=== PATIENT | female | born 1940 | race Caucasian/White ===

== ENCOUNTER → 2018-01-09 | Outpatient (CLI) | payer MEDICARE, BC ==
[~2018-01-09] MED LIST: ADVA100A INH; ATOR20TA15 PO; BRIM0.2S4 EACH EYE; CALC1TAB87 PO; CHLOR50 PO; CYAN1TAB24 PO; FLUT50SP EACH NARE; GLIM4TAB PO; LEVEMIR SQ; LIDO2GEL11 TOPICAL; METF500T PO; METO1TAB42 PO; NOVOLOGP2 SQ; NYST15T TOPICAL; OMEGCAP PO; OMEP20TA93 PO; PARO40TA2 PO; PEXE20TA PO; PRED50 PO; PRIL20TA2 PO; REST30CA PO; TEMA30CA PO; TIMO0.5S5 EACH EYE; VENTAER INH; ZITHTAB PO
[2018-01-09 09:48] LABS: HEMATOCRIT 42.5 % (35.0-46.0); HEMOGLOBIN 14.3 GM/DL (11.6-15.3); MEAN CELL VOLUME 84.5 FL (80.0-100.0); MEAN CORPUSCULAR HEMOGLOBIN 28.4 PG (27.0-34.0); MEAN CORPUSCULAR HGB CONC 33.6 % (32.0-36.0); MEAN PLATELET VOLUME 9.1 FL (7.0-11.0); PLATELET COUNT 229 TH/MM3 (150-450); RED BLOOD COUNT 5.03 MIL/MM3 (4.00-5.30); RED CELL DISTRIBUTION WIDTH 15.1 % (11.6-17.2); WHITE BLOOD COUNT 7.9 TH/MM3 (4.0-11.0)
[2018-01-09 09:55] LABS: PROTHROMBIN TIME - PATIENT 10.5 SEC (9.8-11.6)
[2018-01-09 10:00] LABS: BACTERIA, URINE MANY /hpf; BILIRUBIN, URINE NEG (NEG); BLOOD, URINE NEG (NEG); GLUCOSE,URINE NEG (NEG); HYALINE CAST, URINE 3 /lpf (RARE); KETONE, URINE NEG (NEG); MUCUS URINE FEW /lpf (OCC); PH, URINE 5.5 (5.0-8.5); SQUAMOUS EPITHELIAL CELL URINE 2 /hpf (0-5); URINE COLOR YELLOW (YELLW/STRAW); WHITE BLOOD CELL CLUMPS RARE
[2018-01-09 10:06] LABS: NITRITE,URINE POS (NEG); URINE LEUKOCYTE ESTERASE TRACE (NEG)
[2018-01-09 10:25] LABS: BICARBONATE 27.9 MEQ/L (21.0-32.0); BLOOD UREA NITROGEN 22 MG/DL (7-18); CALCIUM 9.3 MG/DL (8.5-10.1); CHLORIDE 99 MEQ/L (98-107); CREATININE 0.96 MG/DL (0.50-1.00); GLOMERULAR FILTRATION RATE 57 ML/MIN (>89); GLUCOSE,FASTING 252 MG/DL (74-99); SODIUM (NA) 138 MEQ/L (136-145)
[2018-01-09 16:16] LABS: HEMOGLOBIN A1C 7.9 % (4.3-6.0)
--- NOTE | 2018-01-10 15:54 | EKG ---
Date Performed: 01/09/2018 Time Performed: 08:30:50 PTAGE: 77 years EKG: Sinus rhythm RIGHT BUNDLE BRANCH BLOCK LEFT ANTERIOR FASCICULAR BLOCK ABNORMAL ECG NO PREVIOUS TRACING DOCTOR: Matthew Latham Interpretating Date/Time 01/10/2018 15:52:46
== END ==
LOC: CPRE 08:02
PROVIDERS: ATTEND Orthopaedic Surgery
DX: Z01.810 Encounter for preprocedural cardiovascular examination (principal); Z01.812 Encounter for preprocedural laboratory examination; M16.12 Unilateral primary osteoarthritis, left hip; M79.609 Pain in unspecified limb; I10 Essential (primary) hypertension; E11.9 Type 2 diabetes mellitus without complications; R94.31 Abnormal electrocardiogram [ECG] [EKG]; R82.99 Other abnormal findings in urine; B96.20 Unspecified Escherichia coli [E. coli] as the cause of diseases classified elsewhere
CPT/HCPCS: 36415; 80048; 81001; 83036; 85027; 85610; 85730; 87077; 87086; 87186; 93005

== ENCOUNTER → 2018-01-23 | Outpatient (CLI) | payer MEDICARE, BC ==
[~2018-01-23] MED LIST changes: +ADJUSTABLE COMM1 MIS; +ECASA81 PO; -GLIM4TAB PO; +HYDR-3580 PO; -LIDO2GEL11 TOPICAL; -METF500T PO; -METO1TAB42 PO; -PEXE20TA PO; +POTA-163 PO; +POTA10CA PO; -PRED50 PO; -PRIL20TA2 PO; -REST30CA PO; +XARE10TA PO; -ZITHTAB PO
[2018-01-23 11:33] LABS: BACTERIA, URINE MANY /hpf; BILIRUBIN, URINE NEG (NEG); BLOOD, URINE NEG (NEG); GLUCOSE,URINE NEG (NEG); HYALINE CAST, URINE 5 /lpf (RARE); KETONE, URINE NEG (NEG); MUCUS URINE FEW /lpf (OCC); NITRITE,URINE NEG (NEG); SQUAMOUS EPITHELIAL CELL URINE <1 /hpf (0-5); URINE COLOR YELLOW (YELLW/STRAW); URINE LEUKOCYTE ESTERASE SMALL (NEG)
== END ==
LOC: CPRE 09:34
PROVIDERS: ATTEND Orthopaedic Surgery
DX: Z01.812 Encounter for preprocedural laboratory examination (principal); M16.12 Unilateral primary osteoarthritis, left hip; M79.609 Pain in unspecified limb; I10 Essential (primary) hypertension; E11.9 Type 2 diabetes mellitus without complications; B96.89 Other specified bacterial agents as the cause of diseases classified elsewhere
CPT/HCPCS: 81001; 87077; 87086; 87186

== ENCOUNTER 2018-01-24 10:00 | Inpatient (IN) | payer MEDICARE, BC ==
[~2018-01-24] VITALS: Ht 160 cm; Wt 115.1 kg
[~2018-01-24 10:00] MED LIST changes: -ADJUSTABLE COMM1 MIS; -ECASA81 PO; -HYDR-3580 PO; -POTA-163 PO; -POTA10CA PO; -XARE10TA PO
[2018-01-30] MEDS ORDERED: CHLORHEXIDINE GLUCONATE 4% SOLN 120 ML BTL TOPICAL SCH (07:45)
[2018-01-30] MEDS ORDERED: SODIUM CHLORID 0.9% 500 ML IV PRN (07:45)
[2018-01-30] MEDS ORDERED: CHLORHEXIDINE GLUCONATE 2 % 1 PACK (2 CLOTHS) TOPICAL PRN (07:45)
[2018-01-30] MEDS ORDERED: LACTATED RINGER'S 1000 ML IV PRN (07:45)
[2018-01-30] MEDS ORDERED: ceFAZolin 2 GM PREMIX 50 ML IV SCH (07:45)
[2018-01-30] MEDS ORDERED: METOPROLOL TARTRATE 25 MG TAB PO PRN (07:45)
[2018-01-30] MEDS ORDERED: POVIDONE IODINE 5% (ANTISEPSIS KIT) 4 APPLICATIONS EACH NARE PRN (07:45)
[2018-01-30] MEDS ORDERED: POTA10CA PO (07:55)
[2018-01-30] MEDS ORDERED: POTA-163 PO (07:55)
[2018-01-30] MEDS ORDERED: SODIUM CHLORIDE 0.9% IV SCH ×2 (09:00→12:00)
[2018-01-30] MEDS ORDERED: EXPAREL PERI-ARTICULAR INJECTION (TOTAL VOL. 60 ML) P-ARTICULR SCH ×2 (09:00)
[2018-01-30] MEDS ORDERED: TRANEXAMIC ACID IV SCH ×2 (09:00→12:00)
[2018-01-30] MEDS ORDERED: GENTAMICIN SULFATE 80 MG/2 ML VIAL ONE ×2 (09:24→09:25)
[2018-01-30] MEDS ORDERED: PROPOFOL 500 MG/50 ML INJ 50 ML ONE (10:15)
[2018-01-30] MEDS ORDERED: ACETAMINOPHEN 1000 MG/100 ML 100 ML IV ONE (10:15)
[2018-01-30] MEDS ORDERED: MIDAZOLAM HCL 2 MG/2 ML VIAL ONE (10:15)
[2018-01-30] MEDS ORDERED: FAMOTIDINE 20 MG/2 ML VIAL ONE (10:15)
[2018-01-30] MEDS ORDERED: BUPIVACAINE PF 0.75% DEX-WATER INJ 2 ML AMP ONE (10:16)
[2018-01-30] MEDS ORDERED: PROPOFOL 200 MG/20 ML AMP IV ONE (12:00)
[2018-01-30] MEDS ORDERED: PHENYLEPH/NS 1000 MCG/10 ML SYR IV ONE (12:00)
[2018-01-30] MEDS ORDERED: LACTATED RINGER'S 1000 ML INJ 1,000 ML IV ONE (12:00)
[2018-01-30] MEDS ORDERED: ePHEDrine/NS 25 MG/5 ML SYRINGE IV ONE (12:00)
[2018-01-30] MEDS ORDERED: PROPOFOL 200 MG/20 ML AMP ONE (12:17)
[2018-01-30] MEDS ORDERED: MAGNESIUM HYDROXIDE SUSP 30 ML CUP PO PRN (12:45)
[2018-01-30] MEDS ORDERED: BISACODYL 10 MG SUPP RECTAL PRN (12:45)
[2018-01-30] MEDS ORDERED: TRANEXAMIC ACID INJ 0 MG in SODIUM CHLORIDE 0.9% INJ 100 ML IV SCH (12:45)
[2018-01-30] MEDS ORDERED: ZOLPIDEM TARTRATE 5 MG TAB PO PRN (12:45)
--- NOTE | 2018-01-30 12:58 | PD.OP ---
Operative Report Date of Surgery: Jan 30, 2018 Preoperative Diagnosis: (1) Primary osteoarthritis of left hip Postoperative Diagnosis: (1) Primary osteoarthritis of left hip Procedure: Left total hip arthroplasty using Ohiopyle prosthesis. 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 Her ambulation tolerance is now about 15 steps because of the pain. She has difficulty entering and exiting an automobile. She has difficulty with stairs. She has difficulty standing from a seated position. Treatment has been with analgesics, ambulatory aids, exercise, activity modification. She cannot take nonsteroidal anti-inflammatory agents because of possible anaphylaxis associated with aspirin products. Physical findings showed limited range of motion of the hip with tenderness on motion. She has a severely antalgic gait. X-rays showed advanced arthritis in the left hip with joint space narrowing, irregularity in the shape of the proximal femur and acetabulum, osteophytes and eburnation. Operative findings: There is severe osteoarthritis in the left hip with eburnation, large osteophytes and loss of articular cartilage to expose subchondral bone. Implants: The acetabular component was a Tritanium cluster shell, outer diameter of 50 mm with a 36 mm inner diameter, X3 polyethylene, 0 lip liner. The femoral component was an Accolade 2 size 3 x 132. The femoral head was Biolox delta, 36 mm outer diameter, +0 mm offset. The patient was brought to the clean air operating suite and a spinal anesthetic was administered. The patient was then positioned into a lateral position with the operative hip up on a [employer] lateral positioner. The hip and lower extremity were then prepped with alcohol, Hibiclens and ChloraPrep and draped in the usual manner with the hip draped free. Patient received prophylactic antibiotics preoperatively. The patient also received tranexamic acid preoperatively. An appropriate timeout procedure was carried out. An incision was then made from the midportion of the greater trochanter proximally and posteriorly paralleling the fibers of the gluteus jean-paul. The incision was deepened through subcutaneous tissues down to the fascia radha and gluteus fascia. The gluteus fascia was then split longitudinally in line with its fibers up to the upper portion of the fascia radha. With wound towels in place, the Charnley retractor was inserted. The sciatic nerve was identified and protected throughout the procedure. Dissection was then carried down to the interval between the gluteus minimus and the piriformis. A retractor was inserted. The piriformis and obturator conjoined tendon was released from the greater trochanter and reflected off the capsule. A capsulotomy was made longitudinally along the femoral neck to the base of the femoral neck and then curved distally along the posterior aspect of the greater trochanter. The hip was then internally rotated. Further release of the external rotators was carried out exposing the hip. The hip was then dislocated. The femoral neck was transected at the appropriate level using the oscillating saw placement of appropriate retractors. The femoral head was then removed. Preparation of the femur was initiated with a box osteotome followed by a curet to identify the medullary canal. Broaching was then initiated with the size 0 broach and went and 1 size increments up to size 4 initially and then subsequently was brought back to a size 3. The broach handle was removed. The femoral neck was then trimmed with a calcar planar. Attention was then directed to the acetabulum. Soft tissues were debrided from the acetabulum. Retractors were placed about the acetabulum. Reaming was then initiated with the 45 mm millimeter reamer and went in 1-2 mm increments up to the 49 mm millimeter diameter reamer. A trial reduction with the 50 mm millimeter trial prosthesis was carried out. When this was deemed to be appropriate, the trial prosthesis was removed. The acetabulum was then irrigated and cleaned. The actual prosthesis as noted above was then impacted into place and seated appropriately. Drill holes were then made and sounded. Appropriate sized screws were then inserted to stabilize the acetabulum further. The liner as noted above was then inserted into the acetabular shell and impacted into place. Osteophytes were trimmed from the acetabulum. Local anesthetic was then administered throughout the area of the acetabulum and anterior aspect of the femur. The trial neck was then placed on the broach for the above-noted prosthesis. The femoral head trial was placed onto the femoral neck . A trial reduction was then carried out. Adjustment was made as needed. The stability, leg length and motion were excellent. There was no pistoning. The trial prosthesis was removed. The broach was removed. The femoral component was then impacted into the medullary canal of the femur after irrigation and suctioning. When this was appropriately seated a trial reduction was again carried out with the trial prosthesis. Again, there was no pistoning. The leg length was appropriate. The stability and motion were excellent. The trial prosthesis was then removed. After cleaning and drying the trunion of the femoral component, the above-noted femoral head was impacted onto the trunnion. The hip was then reduced. The stability and mobility were again checked along with leg lengths as noted above. The hip was then positioned appropriately and closure commenced after the remainder of the local anesthetic was injected throughout the hip. The external rotators and capsule were then repaired with #1 Vicryl interrupted transosseous sutures with a Krak w technique to reattach the external rotators and capsule to the posterior aspect of the greater trochanter. The capsule itself on the superior aspect was closed with #1 Vicryl interrupted [id number] sutures. The sciatic nerve was again inspected. The fascia radha and gluteus fascia were then repaired with #1 Vicryl interrupted [id number] sutures. The subcutaneous tissues were closed with 2-0 Vicryl interrupted simple sutures with buried knots. The skin was closed with a continuous subcuticular closure of 4-0 Monocryl. The wound was then approximated with Dermabond Prineo. A dry sterile dressing was applied to the hip. A knee immobilizer was applied to the leg. The patient was then transferred from the operating room to the recovery room in satisfactory condition having tolerated the procedure well. Counts are correct. Specimens: None. Estimated blood loss: 150 mL Mansi Howard MD (Charles) Jan 30, 2018 12:58
[2018-01-30] MEDS ORDERED: NYSTATIN 100,000 UNIT/GM CREAM 15 GM TOPICAL PRN (13:00)
[2018-01-30] MEDS ORDERED: ALBUTEROL SULFATE 90 MCG/ACT HFA 8 GM INHALER INH PRN (13:00)
--- NOTE | 2018-01-30 13:00 | HHI.FF ---
Face to Face Verification Diagnosis: (1) Status post total replacement of left hip Physical Therapy Gait training Hip: Total hip, Protocol: Left, Posterior hip precautions, Progress to weight bearing Canvas Knee Splint: When in bed & 2 pillows btw thighs Left LE Weight Bearing: WB as tolerated Left LE Range of Motion: Active ROM Nursing Nursing: Dressing changes Dressing Changes: Daily dressing change, Coverderm/Primapore Additional Instructions Do not remove Dermabond Prineo. I have seen patient Luz Orr on 01/30/18. My clinical findings support the need for the requested home health care services because: Ltd mobility - disease progression Limited ability to care for self High risk of falls I certify that my clinical findings support that this patient is homebound because: Post-op weakness Unsteady gait/balance Unsafe to leave home unassisted Mansi Howard MD (Charles) Jan 30, 2018 13:00
[2018-01-30] MEDS ORDERED: HYDR-3580 PO (13:03)
[2018-01-30] MEDS ORDERED: XARE10TA PO (13:03)
[2018-01-30] MEDS ORDERED: DO NOT ADM ANY ANTICOAGULANT DRUGS PRN (13:13)
--- NOTE | 2018-01-30 13:57 | RADRPT ---
EXAM DATE: 01/30/2018 1:55 PM EDT AGE/SEX: 77 years / Female INDICATIONS: Post op left total hip. CLINICAL DATA: This is the patient's initial encounter. Patient reports that signs and symptoms have been present for 1 day and indicates a pain score of Nonresponsive. MEDICAL/SURGICAL HISTORY: . Unobtainable. . Unobtainable. COMPARISON: No prior exams available for comparison. FINDINGS: The patient is status post a total hip arthroplasty. Prosthesis is well-seated. Alignment is anatomic . A fracture is not appreciated. CONCLUSION: Anatomic alignment. Marv Guevara MD FACR Electronically signed by: Marv Guevara MD 01/30/2018 1:55 PM EDT
[2018-01-30] MEDS: LACTATED RINGER'S 1000 ML INJ 1,000 ML IV SCH (14:00)
[2018-01-30] MEDS ORDERED: ONDANSETRON ODT 4 MG TAB PO PRN (14:15)
[2018-01-30] MEDS ORDERED: Post-op Orders (for Pharmacy) XX ONE (14:15)
[2018-01-30] MEDS ORDERED: MORPHINE SULFATE 4 MG/ML INJ IV PUSH PRN (14:15)
[2018-01-30] MEDS ORDERED: DEXTROSE 50% IN WATER 50 ML VIAL(D50) IV PUSH PRN (14:30)
[2018-01-30] MEDS ORDERED: GLUCAGON 1 MG/ML VIAL OTHER PRN (14:30)
--- NOTE | 2018-01-30 14:58 | PD.CONS ---
HPI Service [facility] Consult Requested By Dr. SAMM Howard Reason for Consult Opinion and recommendation on patient's diabetes mellitus, hypertension, asthma Primary Care Physician No Primary Care Physician Diagnoses: History of Present Illness 77-year-old white female with a history of osteoarthritis, hyperlipidemia, diabetes mellitus, insulin-dependent, asthma, hypertension who has had long- standing history of left hip pain despite conservative treatment. She electively underwent a left total hip arthroplasty today with Dr. Howard orthopedic surgery. She is currently being seen here in the PACU. Her daughter is also at bedside who assisted with helping me gather her past medical history. She does have a history of constipation. She has also been seeing Dr. Becerril for a right hip buttocks wound as an outpatient. Review of Systems Constitutional: DENIES: Fatigue, Fever, Chills, Change in appetite Endocrine: DENIES: Heat/cold intolerance Eyes: DENIES: Blurred vision, Eye pain, Vision loss Ears, nose, mouth, throat: DENIES: Hearing loss, Nasal discharge, Throat pain, Ear Pain, Sinus Pain Respiratory: DENIES: Cough, Shortness of breath Cardiovascular: DENIES: Chest pain, Palpitations, Dyspnea on Exertion, Lower Extremity Edema Gastrointestinal: COMPLAINS OF: Constipation, DENIES: Abdominal pain, Black stools, Bloody stools, Diarrhea, Nausea, Vomiting Genitourinary: DENIES: Dysuria Musculoskeletal: COMPLAINS OF: Joint pain (Left hip pain as described in HPI), DENIES: Muscle aches, Stiffness Integumentary: DENIES: Rash Hematologic/lymphatic: DENIES: Bruising, Lymphadenopathy Immunologic/allergic: DENIES: Eczema Neurologic: DENIES: Headache, Localized weakness, Paresthesias Psychiatric: DENIES: Anxiety, Depression, Suicidal Ideation Past Family Social History Allergies: Coded Allergies: diclofenac (Verified Allergy, Severe, Analphylaxis, 01/30/18) etodolac (Verified Allergy, Severe, Analphylaxis, 01/30/18) flurbiprofen (Verified Allergy, Severe, Analphylaxis, 01/30/18) ibuprofen (Verified Allergy, Severe, Analphylaxis, 01/30/18) indomethacin (Verified Allergy, Severe, Analphylaxis, 01/30/18) ketoprofen (Verified Allergy, Severe, Analphylaxis, 01/30/18) ketorolac (Verified Allergy, Severe, Analphylaxis, 01/30/18) lisinopril (Verified Allergy, Severe, Anaphylaxis, 01/30/18) beth (Verified Allergy, Severe, Rash, 01/30/18) naproxen (Verified Allergy, Severe, Analphylaxis, 01/30/18) oxaprozin (Verified Allergy, Severe, Analphylaxis, 01/30/18) Past Medical History Hyperlipidemia Hypertension Asthma GERD Sciatica Insulin-dependent diabetes mellitus Anxiety Depression Past Surgical History Right total hip surgery Right carpal tunnel release Lumbar surgery Cataract surgery Reported Medications Albuterol 1 puff inhaler every 4 as needed for shortness of breath Atorvastatin 20 mg p.o. nightly Breyer 191 drop each eye twice daily Calcium carbonate 1 tablet p.o. daily Chlorothiazide down 50 mg p.o. daily Vitamin B12 1000 MCG's p.o. daily Fish oil 1 capsule p.o. twice daily Flonase nasal spray each nail twice daily as needed Advair 1 puff inhaler twice daily Hydrocodone/acetaminophen 1 p.o. every 4 as needed for pain NovoLog 8 units subcu q. before meals and nightly Levemir 22 units subcu daily Nystatin topical area twice daily as needed Prilosec 20 mg p.o. daily as needed Paroxetine 40 mg p.o. daily Potassium chloride 10 mg p.o. nightly Potassium chloride 20 mg p.o. q. daily Restoril 30 mg p.o. nightly Timolol ophthalmic drops 1 drop twice daily Family History Father had COPD Mother had colon cancer and dementia Social History Does not smoke cigarettes or drink alcohol Physical Exam Vital Signs Vital Signs Date Time Temp Pulse Resp B/P (MAP) Pulse Ox O2 Delivery O2 Flow Rate FiO2 01/30/18 13:14 98.1 90 20 121/60 (80) 95 Nasal Cannula 2 01/30/18 08:00 98.1 86 20 159/90 (113) 99 Physical Exam GENERAL: This is a well-nourished, obese, well-developed patient, in no apparent distress. SKIN: No rashes, ecchymoses or lesions. Cool and dry. HEAD: Atraumatic. Normocephalic. No temporal or scalp tenderness. EYES: Pupils equal round and reactive. Extraocular motions intact. No scleral icterus. No injection or drainage. ENT: Nose without bleeding, purulent drainage or septal hematoma. T NECK: Trachea midline. No JVD or lymphadenopathy. Supple, nontender, no meningeal signs. CARDIOVASCULAR: Regular rate and rhythm RESPIRATORY: Clear to auscultation. Breath sounds equal bilaterally. No wheezes , rales, or rhonchi. GASTROINTESTINAL: Abdomen soft, non-tender, nondistended, normoactive bowel sounds MUSCULOSKELETAL: Extremities without clubbing, cyanosis, trace edema, left lower leg bandage clean dry intact in immobilizer NEUROLOGICAL: Awake and alert to person place time. Cranial nerves II through XII intact. Laboratory Laboratory Tests Test 01/30/18 07:58 Potassium Level 3.5 Result Diagram: 01/30/18 0758 Assessment and Plan Assessment and Plan 1. Status post left total hip arthroplasty continue postoperative care, pain control, physical therapy per Dr. Howard orthopedic surgery 2. Insulin-dependent diabetes mellitus resume home Levemir and NovoLog prior to meals, check blood sugars with sliding scale insulin coverage. Further recommendation based on blood sugar trends 3. Hypertension resume home antihypertensives 4. Hyperlipidemia resume home statin 5. GERD PPI 6. History of depression/anxiety resume paroxetine 7. DVT prophylaxis Xarelto Thank you for this consultation Marielos Castellon MD Jan 30, 2018 14:58
[2018-01-30 16:00] VITALS: BP 157/104; PULSE 84; RESP 18; TEMP 97.5; O2SAT 97
[2018-01-30] MEDS: INSULIN ASPART SUPPLEMENTAL SCALE SQ SCH ×2 (17:00→21:11)
[2018-01-30 20:00] VITALS: BP 176/85; PULSE 96; RESP 18; TEMP 98.2; O2SAT 99
[2018-01-30] MEDS: BUDESONIDE-FORMOTEROL 80/4.5 MCG INHALER INH SCH (21:00)
[2018-01-30] MEDS ORDERED: NON-FORMULARY DRUG (Fish Oil-Cholecalciferol (Omega-3 Fish Oil/Vitamin) 1 CAP) PO SCH (21:00)
[2018-01-30] MEDS: INSULIN ASPART 1,000 UNITS/10 ML VIAL SQ SCH (21:00)
[2018-01-30] MEDS: BRIMONIDINE TARTRATE 0.2% OPHT SOLN 5 ML BTL EACH EYE SCH (21:00)
[2018-01-30] MEDS: TIMOLOL MALEATE 0.5% OPHT SOLN 5 ML BTL EACH EYE SCH (21:00)
[2018-01-30] MEDS: ATORVASTATIN 20 MG TAB PO SCH (21:10)
[2018-01-30] MEDS: POTASSIUM CHLORIDE 10 MEQ CAP PO SCH (21:10)
[2018-01-30] MEDS: ACETAMINOPHEN/HYDROcodone 325 MG/7.5 MG TAB PO PRN (21:11)
[2018-01-31] VITALS: BP 130/83; PULSE 102; RESP 18; TEMP 98.7; O2SAT 98
[2018-01-31] MEDS: LACTATED RINGER'S 1000 ML INJ 1,000 ML IV SCH ×2 (02:30→15:00)
[2018-01-31] MEDS: ACETAMINOPHEN/HYDROcodone 325 MG/7.5 MG TAB PO PRN ×3 (03:42→19:54)
[2018-01-31 04:00] VITALS: BP 146/68; PULSE 99; RESP 18; TEMP 98.2; O2SAT 96
[2018-01-31 04:56] LABS: HEMATOCRIT 37.2 % (35.0-46.0); HEMOGLOBIN 12.7 GM/DL (11.6-15.3)
--- NOTE | 2018-01-31 06:19 | PD.ORT.PN ---
Subjective Post Op Day #: 1 Subjective Remarks She is doing well. She indicates that she walked 3 steps. She has some pain. Distance Walked The patient was not walked therapy because of minor residuals of the spinal. Objective Vitals Vital Signs Date Time Temp Pulse Resp B/P (MAP) Pulse Ox O2 Delivery O2 Flow Rate FiO2 01/31/18 04:00 98.2 99 18 146/68 (94) 96 01/31/18 00:00 98.7 102 18 130/83 (99) 98 01/30/18 20:00 98.2 96 18 176/85 (115) 99 01/30/18 16:00 97.5 84 18 157/104 (121) 97 01/30/18 15:41 97.6 81 20 139/63 (88) 97 Nasal Cannula 2 01/30/18 15:30 81 20 139/63 (88) 97 Nasal Cannula 2 01/30/18 15:15 79 20 133/60 (84) 98 Nasal Cannula 2 01/30/18 15:00 79 20 138/65 (89) 100 Nasal Cannula 2 01/30/18 14:45 79 20 143/66 (91) 100 Nasal Cannula 2 01/30/18 14:30 81 20 145/72 (96) 98 Nasal Cannula 2 01/30/18 14:15 79 20 145/71 (95) 98 Nasal Cannula 2 01/30/18 14:00 80 20 142/73 (96) 98 Nasal Cannula 2 01/30/18 13:45 85 20 138/74 (95) 100 Nasal Cannula 2 01/30/18 13:30 90 20 122/63 (82) 96 Nasal Cannula 2 01/30/18 13:14 98.1 90 20 121/60 (80) 95 Nasal Cannula 2 01/30/18 08:00 98.1 86 20 159/90 (113) 99 I/O 01/30/18 01/30/18 01/30/18 01/31/18 01/31/18 01/31/18 07:00 15:00 23:00 07:00 15:00 23:00 Intake Total 1800 ml 480 ml Output Total 150 ml Balance 1650 ml 480 ml Intake Oral 480 ml Other 1800 ml Output Estimated Blood Loss 150 ml # Voids 1 2 # Bowel Movements 1 Result Diagram: 01/31/18 0445 01/30/18 0758 Imaging Last 24 hours Impressions Hip X-Ray 01/30/18 8073 Signed Impressions: CONCLUSION: Anatomic alignment. Marv Guevara MD FACR Objective Remarks She is resting comfortably, supine in bed. The neurovascular status is intact. The dressing is dry and intact. Assessment & Plan Ortho Post Op Day #: 1 Problem List: (1) Primary osteoarthritis of left hip ICD Codes: M16.12 - Unilateral primary osteoarthritis, left hip Status: Resolved (2) Status post total replacement of left hip ICD Codes: Z96.642 - Presence of left artificial hip joint Plan: Continue postop care and PT. Assessment and Plan Condition: Good. Orthopedically stable. DVT prophylaxis: TEDs, Xarelto, sequentials. Discharge plans: Home with home health care, today or tomorrow. An appointment was scheduled through the office. Prescriptions: Vader 7.5/325 Mansi Howard MD (Charles) Jan 31, 2018 06:19
[2018-01-31 08:02] VITALS: BP 136/63; PULSE 91; RESP 18; TEMP 98.1; O2SAT 95
--- NOTE | 2018-01-31 08:07 | PD.WOU.CON ---
Patient Intake Chief Complaint Right hip ulcer Consult Requested by Reason for Consult Management of right hip ulcer. Primary Care Physician No Primary Care Physician Coded Allergies: diclofenac (Verified Allergy, Severe, Analphylaxis, 01/30/18) etodolac (Verified Allergy, Severe, Analphylaxis, 01/30/18) flurbiprofen (Verified Allergy, Severe, Analphylaxis, 01/30/18) ibuprofen (Verified Allergy, Severe, Analphylaxis, 01/30/18) indomethacin (Verified Allergy, Severe, Analphylaxis, 01/30/18) ketoprofen (Verified Allergy, Severe, Analphylaxis, 01/30/18) ketorolac (Verified Allergy, Severe, Analphylaxis, 01/30/18) lisinopril (Verified Allergy, Severe, Anaphylaxis, 01/30/18) beth (Verified Allergy, Severe, Rash, 01/30/18) naproxen (Verified Allergy, Severe, Analphylaxis, 01/30/18) oxaprozin (Verified Allergy, Severe, Analphylaxis, 01/30/18) Vital Signs Date Time Temp Pulse Resp B/P (MAP) Pulse Ox O2 Delivery O2 Flow Rate FiO2 01/31/18 08:02 98.1 91 18 136/63 (87) 95 01/31/18 04:00 98.2 99 18 146/68 (94) 96 01/31/18 00:00 98.7 102 18 130/83 (99) 98 01/30/18 20:00 98.2 96 18 176/85 (115) 99 01/30/18 16:00 97.5 84 18 157/104 (121) 97 01/30/18 15:41 97.6 81 20 139/63 (88) 97 Nasal Cannula 2 01/30/18 15:30 81 20 139/63 (88) 97 Nasal Cannula 2 01/30/18 15:15 79 20 133/60 (84) 98 Nasal Cannula 2 01/30/18 15:00 79 20 138/65 (89) 100 Nasal Cannula 2 01/30/18 14:45 79 20 143/66 (91) 100 Nasal Cannula 2 01/30/18 14:30 81 20 145/72 (96) 98 Nasal Cannula 2 01/30/18 14:15 79 20 145/71 (95) 98 Nasal Cannula 2 01/30/18 14:00 80 20 142/73 (96) 98 Nasal Cannula 2 01/30/18 13:45 85 20 138/74 (95) 100 Nasal Cannula 2 01/30/18 13:30 90 20 122/63 (82) 96 Nasal Cannula 2 01/30/18 13:14 98.1 90 20 121/60 (80) 95 Nasal Cannula 2 Past, Family & Social History Past Medical History HEENT: REPORTS HX OF: Other HEENT history (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 7), DENIES HX OF: Cataracts, Glaucoma, Recurrent ear infections, Recurrent sinusitis Endocrine: REPORTS HX OF: Diabetes mellitus, DENIES HX OF: Graves disease, Hyperthyroidism, Hypothyroidism, Other endocrine history Respiratory: DENIES HX OF: Allergies/hay fever, Asthma, COPD, CPAP use, Sleep apnea, Other respiratory history Cardiovascular: REPORTS HX OF: Hyperlipidemia, Hypertension, Other CV history ( obesity), DENIES HX OF: Abdominal aortic aneurysm, Angina, Atrial fibrillation, Cardiac arrhythmias, Coronary artery disease, Deep venous thrombosis, Heart failure, Heart valve disease, Myocardial infarction, Peripheral vascular dz Gastrointestinal: DENIES HX OF: Colitis, GERD, Irritable bowel syndrome, Liver disease, Pancreatitis, Peptic ulcer disease, Other GI history Genitourinary: DENIES HX OF: Chlamydia, Gonorrhea, Hemodialysis, Herpes genitalis, Human papillomavirus, Kidney disease, Kidney failure, Kidney stones, Past UTI, Peritoneal dialysis, Urinary incontinence, Other history Gynecologic: DENIES HX OF: Abnormal pap smear, Chronic pelvic pain, Endometriosis, PID, Polycystic ovarian synd, Recurrent vaginal infxn, 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 Age at Menarche: 14 Age at Menopause: 47 History: : 5 Live Births: 5 Musculoskeletal: REPORTS HX OF: Osteoarthritis, Other musculoskeletal hx ( chronic back pain) Cancer/Hematology: DENIES HX OF: Anemia, Bladder Cancer, Blood cancer, Brain cancer, Breast cancer, Colorectal cancer, Endocrine cancer, Eye cancer, GI cancer, cancer, Kidney cancer, Leukemia, Liver cancer, Lung cancer, Lymphoma , Musculoskeletal cancer, Neurologic cancer, Oral cancer, Skin cancer, Stomach cancer, Thyroid cancer, Other cancer/hematology Cancer - Female: DENIES HX OF: Cervical cancer, Ovarian cancer, Uterine cancer Infectious Disease: REPORTS HX OF: Chickenpox, Measles, DENIES HX OF: AIDS, Hepatitis, HIV, MRSA, Mumps, Polio, Positive PPD, Rheumatic fever, Rubella, Syphilis, Tuberculosis, Vanc-resistant enterococc, Other inf disease history Integumentary: DENIES HX OF: Acne, Eczema, Psoriasis, Other integumentary hx Neurologic: DENIES HX OF: ADHD, Autism, Dementia, Developmental delay, Headaches, Multiple sclerosis, Parkinson disease, Peripheral neuropathy, Restless leg syndrome, Seizures, Stroke, Transient ischemic attack, Other neurologic history Psychiatric: REPORTS HX OF: Depression Genetic/Metabolic: DENIES HX OF: Cystic fibrosis, Down syndrome, Other genetic history, Other metabolic history Events: DENIES HX OF: Anaphylaxis, Gunshot wound, Motor vehicle accident, Other events Disabilities: REPORTS HX OF: Hearing deficit Past Surgical History Gastrointestinal: DENIES HX OF: Colectomy, total Gynecologic: DENIES HX OF: Hysterectomy Musculoskeletal: REPORTS HX OF: Joint replacement (right hip replaced, ganglion cyst removal) Breast: DENIES HX OF: Mastectomy, bilateral, Mastectomy, left, Mastectomy, right Family Medical History COPD (chronic obstructive pulmonary disease) Social History Social History: Adopted: No Educational Level: graduated high school Lives Independently: Yes Marital Status: Service: No 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 Marcia Tse MD, MD Jan 31, 2018 08:07
[2018-01-31] MEDS: INSULIN ASPART 1,000 UNITS/10 ML VIAL SQ SCH ×4 (08:39→21:00)
[2018-01-31] MEDS: CYANOCOBALAMIN 1,000 MCG TAB PO SCH (08:39)
[2018-01-31] MEDS: INSULIN ASPART SUPPLEMENTAL SCALE SQ SCH ×4 (08:39→21:00)
[2018-01-31] MEDS: PARoxetine HCL 20 MG TAB PO SCH (08:40)
[2018-01-31] MEDS: CHLORTHALIDONE 50 MG TAB PO SCH (08:40)
[2018-01-31] MEDS: POTASSIUM CHLORIDE 20 MEQ CONTROLLED RELEASE TAB PO SCH (08:41)
[2018-01-31] MEDS: INSULIN DETEMIR 100 UNITS/ML VIAL SQ SCH (08:42)
--- NOTE | 2018-01-31 08:47 | HHI.PR ---
Subjective Remarks Follow-up visit HLD, DM insulin-dependent, HTN, status post left total hip arthroplasty. Patient seen and examined today. Reports she is in pain, 10/ states that she did get her pain medication. Otherwise, denies chest pain, palpitations, headaches, dizziness. Denies shortness of breath, cough, dyspnea. Denies any fevers, chills, nausea, vomiting, diarrhea. Denies dysuria. Objective Vitals Vital Signs Date Time Temp Pulse Resp B/P (MAP) Pulse Ox O2 Delivery O2 Flow Rate FiO2 01/31/18 08:02 98.1 91 18 136/63 (87) 95 01/31/18 04:00 98.2 99 18 146/68 (94) 96 01/31/18 00:00 98.7 102 18 130/83 (99) 98 01/30/18 20:00 98.2 96 18 176/85 (115) 99 01/30/18 16:00 97.5 84 18 157/104 (121) 97 01/30/18 15:41 97.6 81 20 139/63 (88) 97 Nasal Cannula 2 01/30/18 15:30 81 20 139/63 (88) 97 Nasal Cannula 2 01/30/18 15:15 79 20 133/60 (84) 98 Nasal Cannula 2 01/30/18 15:00 79 20 138/65 (89) 100 Nasal Cannula 2 01/30/18 14:45 79 20 143/66 (91) 100 Nasal Cannula 2 01/30/18 14:30 81 20 145/72 (96) 98 Nasal Cannula 2 01/30/18 14:15 79 20 145/71 (95) 98 Nasal Cannula 2 01/30/18 14:00 80 20 142/73 (96) 98 Nasal Cannula 2 01/30/18 13:45 85 20 138/74 (95) 100 Nasal Cannula 2 01/30/18 13:30 90 20 122/63 (82) 96 Nasal Cannula 2 01/30/18 13:14 98.1 90 20 121/60 (80) 95 Nasal Cannula 2 I/O 01/30/18 01/30/18 01/30/18 01/31/18 01/31/18 01/31/18 07:00 15:00 23:00 07:00 15:00 23:00 Intake Total 1800 ml 480 ml Output Total 150 ml Balance 1650 ml 480 ml Intake Oral 480 ml Other 1800 ml Output Estimated Blood Loss 150 ml # Voids 1 2 # Bowel Movements 1 Result Diagram: 01/31/18 0445 01/30/18 0758 Imaging Last Impressions Hip X-Ray 01/30/18 1243 Signed Impressions: CONCLUSION: Anatomic alignment. Marv Guevara MD FACR Objective Remarks GENERAL: This is a well-nourished, well-developed patient, in no apparent distress. SKIN: Warm and dry. HEENT: Normocephalic. Pupils equal round and reactive. Nose without bleeding. Airway patent. NECK: Trachea midline. CARDIOVASCULAR: Regular rate and rhythm without murmurs, gallops, or rubs. RESPIRATORY: Clear to auscultation. Breath sounds equal bilaterally. No wheezes , rales, or rhonchi. GASTROINTESTINAL: Abdomen soft, non-tender, nondistended. Bowel Sounds normoactive x4. MUSCULOSKELETAL: Extremities without clubbing, cyanosis. Left lower extremity + [address] NEUROLOGICAL: Awake and alert. Oriented to place, person. No focal neuro deficit. Moves all extremities. Mild expressive aphasia. A/P Assessment and Plan 77-year-old white female with a history of osteoarthritis, hyperlipidemia, diabetes mellitus, insulin-dependent, asthma, hypertension who has had long- standing history of left hip pain despite conservative treatment who electively underwent a left total hip arthroplasty today with Dr. Howard orthopedic surgery. Status post left total hip arthroplasty, by Dr. Howard -Pain management, with bowel regimen -Managed by orthopedic team -Physical therapy eval and treat HTN HLD -Resume home medication atorvastatin 20 mg nightly, chlorthalidone 50 mg daily -Monitor BP trend DM 2, insulin-dependent -Prandial insulin, Levemir 22 units daily, insulin sliding scale -Monitor Accu-Cheks. Monitor for hypoglycemia. DVT prop Xarelto GI prop pantoprazole Discharge Planning Plan to DC home when cleared by Meme Argueta Jan 31, 2018 08:47
[2018-01-31] MEDS: BUDESONIDE-FORMOTEROL 80/4.5 MCG INHALER INH SCH ×2 (09:00→19:57)
[2018-01-31] MEDS: BRIMONIDINE TARTRATE 0.2% OPHT SOLN 5 ML BTL EACH EYE SCH ×2 (09:00→19:56)
[2018-01-31] MEDS ORDERED: PANTOPRAZOLE SOD 20 MG DELAYED RELEASE TAB PO PRN (09:00)
[2018-01-31] MEDS: TIMOLOL MALEATE 0.5% OPHT SOLN 5 ML BTL EACH EYE SCH ×2 (09:00→19:56)
--- NOTE | 2018-01-31 11:46 | PD.WCN.NOT ---
Wound Consult Description: Patient seen for wound care physician consult with Doctor Becerril for wound to R hip area Communicated with: Doctor Becerril Recommendation: Please follow written orders in place from Doctor Becerril Additional Information: Patient seen with Doctor Becerril for wound care physician consult earlier. Patient was positioned with the assistance of patient and data analyst report writer to L side for wound assessment of R hip area. Removed ABd pad and medfis tape in place to reeval wound measures ~5cm x ~6 cm x ~0.1cm. Wound presents with 100% pink tissue with scant sero-sanguinous drainage that is without odor. Patient has dressing supplies from home that were ordered by Doctor Becerril. Applied patient' s iodosorb gel to wound bed and covered with telfa and secured with medipore tape. Skin barrier film was applied before dressing was secured to skin with medipore tape. Tamara Davidson [facility] Jan 31, 2018 11:46
[2018-01-31 12:00] VITALS: BP 132/62; PULSE 86; RESP 17; TEMP 98.1; O2SAT 96
[2018-01-31] MEDS ORDERED: RIVAROXABAN 10 MG TAB PO SCH (12:00)
[2018-01-31 16:23] VITALS: BP 117/59; PULSE 89; RESP 18; TEMP 98.4; O2SAT 95
[2018-01-31] MEDS: ATORVASTATIN 20 MG TAB PO SCH (19:53)
[2018-01-31] MEDS: POTASSIUM CHLORIDE 10 MEQ CAP PO SCH (19:53)
[2018-01-31] MEDS: DOCUSATE SODIUM 100 MG CAP PO SCH (19:53)
[2018-01-31 20:00] VITALS: BP 123/65; PULSE 99; RESP 18; TEMP 98.4; O2SAT 94
[2018-02-01] VITALS: BP 157/67; PULSE 90; RESP 20; TEMP 98.2; O2SAT 95
[2018-02-01] MEDS: LACTATED RINGER'S 1000 ML INJ 1,000 ML IV SCH (03:30)
[2018-02-01 04:00] VITALS: BP 133/57; PULSE 86; RESP 18; TEMP 98.2; O2SAT 95
[2018-02-01] MEDS: ACETAMINOPHEN/HYDROcodone 325 MG/7.5 MG TAB PO PRN (05:49)
[2018-02-01 05:52] LABS: HEMATOCRIT 34.8 % (35.0-46.0)
--- NOTE | 2018-02-01 07:10 | PD.ORT.PN ---
Subjective Post Op Day #: 2 Subjective Remarks She is doing well. She has less pain. Her daughter indicates that she is probably not allergic to aspirin. She would like us to try using some aspirin as an anticoagulant. If she tolerates the aspirin and does not have any reaction to it, she would prefer having her on aspirin as an anticoagulant. Distance Walked 6 feet with physical therapy. This was limited by vertigo. Objective Vitals Vital Signs Date Time Temp Pulse Resp B/P (MAP) Pulse Ox O2 Delivery O2 Flow Rate FiO2 02/01/18 04:00 98.2 86 18 133/57 (82) 95 02/01/18 00:00 98.2 90 20 157/67 (97) 95 01/31/18 20:00 98.4 99 18 123/65 (84) 94 01/31/18 16:23 98.4 89 18 117/59 (78) 95 01/31/18 12:00 98.1 86 17 132/62 (85) 96 01/31/18 08:02 98.1 91 18 136/63 (87) 95 I/O 01/31/18 01/31/18 01/31/18 02/01/18 02/01/18 02/01/18 07:00 15:00 23:00 07:00 15:00 23:00 Intake Total 480 ml 960 ml 240 ml Balance 480 ml 960 ml 240 ml Intake Oral 480 ml 960 ml 240 ml # Voids 2 4 1 # Bowel Movements 1 0 Result Diagram: 02/01/18 0502 01/30/18 0758 Imaging Last 24 hours Impressions Hip X-Ray 01/30/18 1243 Signed Impressions: CONCLUSION: Anatomic alignment. Marv Guevara MD FACR Objective Remarks She is resting comfortably, supine in bed. The neurovascular status is intact. The dressing is dry and intact. Assessment & Plan Ortho Post Op Day #: 1 Problem List: (1) Primary osteoarthritis of left hip ICD Codes: M16.12 - Unilateral primary osteoarthritis, left hip Status: Resolved (2) Status post total replacement of left hip ICD Codes: Z96.642 - Presence of left artificial hip joint Plan: Continue postop care and PT. Assessment and Plan Condition: Good. Orthopedically stable. DVT prophylaxis: TEDs, aspirin 81 mg twice daily, sequentials. Discharge plans: Home with home health care, today or tomorrow. An appointment was scheduled through the office. This can be adjusted as needed. Prescriptions: [place] 7.5/325 Mansi Howard MD ([place]) Feb 01, 2018 07:10
[2018-02-01] MEDS ORDERED: ECASA81 PO (07:35)
[2018-02-01] MEDS ORDERED: ADJUSTABLE COMM1 MIS (07:38)
[2018-02-01] MEDS ORDERED: ACETAMINOPHEN 325 MG TAB PO PRN (07:45)
--- NOTE | 2018-02-01 07:53 | HHI.DS ---
Discharge Summary Admission Date Jan 30, 2018 at 07:14 Discharge Date: Feb 01, 2018 Admitting Diagnosis Primary osteoarthritis, left hip. Diagnosis: (1) Primary osteoarthritis of left hip ICD Codes: M16.12 - Unilateral primary osteoarthritis, left hip Status: Resolved (2) Status post total replacement of left hip ICD Codes: Z96.642 - Presence of left artificial hip joint (3) Diabetes mellitus type 2 in obese Diagnosis: Secondary ICD Codes: E11.69 - Type 2 diabetes mellitus with other specified complication ; E66.9 - Obesity, unspecified Status: Chronic (4) Hypertension Diagnosis: Secondary ICD Codes: I10 - Essential (primary) hypertension Status: Chronic (5) Asthma Diagnosis: Secondary ICD Codes: J45.909 - Unspecified asthma, uncomplicated Status: Chronic Procedures Left total knee arthroplasty using Macey prosthesis on 01/30/2018. Brief History This is a 77 year old female patient has had progressive and worsening pain in her left hip that limits her ambulation and activities of daily living secondary to arthritis. She has not responded to conservative measures. She cannot take nonsteroidal anti-inflammatory agents. Physical findings showed a marked antalgic gait using a walker. In addition, she has limited range of motion in the hip with tenderness on motion. X-ray showed loss of articular cartilage to [id number], osteophytes and eburnation. CBC/BMP: 02/01/18 0502 01/30/18 0758 Significant Findings Laboratory Tests Test 01/30/18 07:58 01/31/18 04:45 02/01/18 05:02 Hematocrit 34.8 % (35.0-46.0) Imaging Last 72 hours Impressions Hip X-Ray 01/30/18 1243 Signed Impressions: CONCLUSION: Anatomic alignment. Marv Guevara MD FACR PE at Discharge She is resting comfortably, supine in bed. The neurovascular status is intact. The dressing is dry and intact. Hospital Course The patient was admitted as noted above. The above noted operative procedure was carried out that day. Preoperatively prophylactic antibiotics were administered Ancef according to protocol. These were continued postoperatively. The patient also received tranexamic acid to help with hemostasis according to protocol. In the postanesthesia care unit mechanical methods of DVT prophylaxis in the form of KINSEY stockings and sequentials were initiated. Physical therapy was initiated on the day of surgery. On postoperative day #1 physical therapy continued. DVT prophylaxis with Xarelto was initiated at this time. The patient continued physical therapy throughout the hospitalization. The distance walked and range of motion improved throughout the hospitalization. On postoperative day 2, her daughter indicated that the patient probably does not have an aspirin allergy and requested that aspirin be tried instead of the Xarelto. We have complied with this request. The patient was discharged on postoperative day 2 with the disposition being to home with home health care. An appointment for follow-up was made prior to admission. Pt Condition on Discharge: Good Discharge Disposition: Disch w/ Home Health Serv Discharge Instructions Diet Instructions: As Tolerated, No Restrictions Activities You Can Perform: Full Weight Bearing, Shower Only-No Bath Activities to Avoid: Lifting/Bending, Strenuous Activity, Bathing, Driving Follow up Referrals: Orthopedics with Mansi Howard MD ([place]) New Medications: Adjustable Commode 3-in-1 (Adjustable Commode 3-in-1) 1 Mis Mis EA .XX DIRECTED, #[address] (Aspirin DR) 81 Mg Tabdr 81 MG PO BID for Prevent Blood Clot for 30 Days, #60 TAB Hydrocodone/Acetaminophen (Hydrocodone-Acetamin 7.5-325) 7.5 Mg-325 Mg Tablet 1 TAB PO Q4H PRN for PAIN SCALE 1 TO 10, #30 TAB Continued Medications: Albuterol 18 GM Inh (Ventolin Hfa 18 GM Inh) 90 Mcg/Act Aer 1 PUFF INH Q4H PRN for SHORTNESS OF BREATH, #1 INHALER 0 Refills Atorvastatin (Atorvastatin) 20 Mg Tab 20 MG PO HS for Cholesterol Management, #30 TAB 0 Refills Brimonidine Opth Drops (Brimonidine Opth Drops) 0.2% Soln 1 DROP EACH EYE BID for Intraocular pressure, #1 BOTTLE 0 Refills Calcium Carbonate-Cholecalciferol (Calcium 600 with Vitamin D) 600-400 mg-Unit Tab 1 TAB PO DAILY for Calcium Supplement, TAB 0 Refills Chlorthalidone (Chlorthalidone) 50 Mg Tab 50 MG PO DAILY for Blood Pressure Management, TAB 0 Refills Fish Oil-Cholecalciferol ([place]-3 Fish Oil/Vitamin) 1,000-1,000 Mg Cap 1 CAP PO BID for Nutritional Supplement, CAP 0 Refills Fluticasone Nasal [place] (Fluticasone Nasal [place]) 50 Mcg/Act Naspr 50 MCG EACH NARE BID PRN for Allergy Management, #1 BOTTLE 0 Refills 50 mcg/spray Fluticasone-Salmeterol Inh (Advair Diskus Inh) 100-50 Mcg/Blist Aer 1 PUFF INH BID for Asthma Management, #1 INHALER 0 Refills Rinse mouth after use. Insulin Aspart Inj (Novolog Inj) 1,000 Unit/10 Ml Vial 8 UNITS SQ ACHS for Blood Sugar Management, #10 ML 0 Refills Max dose at bedtime:( )units; sugars less than 70,(0)units; sugars 150-199,(1) unit; sugars 200-249,(3) units; sugars 250-299,(5) units; sugars 300-349,(7) units; sugars greater than 349,(9) units Insulin Detemir Inj (Levemir Inj) 1,000 unit/ 10 ML Vial 22 UNITS SQ DAILY for Blood Sugar Management, VIAL 0 Refills Do not mix with any other Insulin. Nystatin Topical (Nystatin Topical) 100,000 unit/gm Cream 1 APPLIC TOPICAL BID PRN for RASH, #15 GM 0 Refills Omeprazole (Omeprazole) 20 Mg Tab 20 MG PO DAILY PRN for hrt, #30 TAB 0 Refills Paroxetine (Paroxetine) 40 Mg Tab 40 MG PO DAILY for Depression Control, #30 TAB 0 Refills Potassium Chloride ER (Potassium Chloride ER) 20 Meq Tab 20 MEQ PO DAILY for Electrolyte Replacement, #30 TAB 0 Refills Potassium Chloride ER (Potassium Chloride ER) 10 Meq Cap 10 MEQ PO HS for Electrolyte Replacement, #30 CAP 0 Refills Temazepam (Temazepam) 30 Mg Cap 30 MG PO HS for Insomnia, #30 CAP 0 Refills Timolol Opth Drops (Timoptic Opth Drops) 0.5 % Soln 1 DROP EACH EYE BID for Glaucoma, #1 BOTTLE 0 Refills Mansi Howard MD ([place]) Feb 01, 2018 07:53
[2018-02-01] MEDS: INSULIN ASPART 1,000 UNITS/10 ML VIAL SQ SCH ×2 (08:00→12:00)
[2018-02-01] MEDS: INSULIN ASPART SUPPLEMENTAL SCALE SQ SCH ×2 (08:00→12:00)
[2018-02-01] MEDS: DOCUSATE SODIUM 100 MG CAP PO SCH (08:15)
[2018-02-01] MEDS: INSULIN DETEMIR 100 UNITS/ML VIAL SQ SCH (08:15)
[2018-02-01] MEDS: PARoxetine HCL 20 MG TAB PO SCH (08:16)
[2018-02-01] MEDS: CHLORTHALIDONE 50 MG TAB PO SCH (08:16)
[2018-02-01] MEDS: CYANOCOBALAMIN 1,000 MCG TAB PO SCH (08:16)
[2018-02-01] MEDS: POTASSIUM CHLORIDE 20 MEQ CONTROLLED RELEASE TAB PO SCH (08:17)
[2018-02-01 08:19] VITALS: BP 114/58; PULSE 88; RESP 17; TEMP 98.1; O2SAT 97
[2018-02-01] MEDS: BUDESONIDE-FORMOTEROL 80/4.5 MCG INHALER INH SCH (08:19)
[2018-02-01] MEDS: BRIMONIDINE TARTRATE 0.2% OPHT SOLN 5 ML BTL EACH EYE SCH (08:19)
[2018-02-01] MEDS: TIMOLOL MALEATE 0.5% OPHT SOLN 5 ML BTL EACH EYE SCH (08:19)
--- NOTE | 2018-02-01 08:41 | HHI.PR ---
Subjective Remarks Follow-up visit HLD, DM insulin-dependent, HTN, status post left total hip arthroplasty. Patient seen and examined today. Reports she is doing well. Daughter at the bedside. Therapist at the bedside. Denies pain and discomfort. Denies SOB/ dyspnea. Denies chest pain, palpitations, headaches, dizziness. Denies fevers, chills, n/v/d. Denies dysuria. Objective Vitals Vital Signs Date Time Temp Pulse Resp B/P (MAP) Pulse Ox O2 Delivery O2 Flow Rate FiO2 02/01/18 08:19 98.1 88 17 114/58 (76) 97 02/01/18 04:00 98.2 86 18 133/57 (82) 95 02/01/18 00:00 98.2 90 20 157/67 (97) 95 01/31/18 20:00 98.4 99 18 123/65 (84) 94 01/31/18 16:23 98.4 89 18 117/59 (78) 95 01/31/18 12:00 98.1 86 17 132/62 (85) 96 I/O 01/31/18 01/31/18 01/31/18 02/01/18 02/01/18 02/01/18 07:00 15:00 23:00 07:00 15:00 23:00 Intake Total 480 ml 960 ml 240 ml Balance 480 ml 960 ml 240 ml Intake Oral 480 ml 960 ml 240 ml # Voids 2 4 1 # Bowel Movements 1 0 Result Diagram: 02/01/18 0502 01/30/18 0758 Imaging Last Impressions Hip X-Ray 01/30/18 1243 Signed Impressions: CONCLUSION: Anatomic alignment. Marv Guevara MD FACR Objective Remarks GENERAL: This is a well-nourished, well-developed patient, in no apparent distress. SKIN: Warm and dry. HEENT: Normocephalic. Pupils equal round and reactive. Nose without bleeding. Airway patent. NECK: Trachea midline. CARDIOVASCULAR: Regular rate and rhythm without murmurs, gallops, or rubs. RESPIRATORY: Clear to auscultation. Breath sounds equal bilaterally. No wheezes , rales, or rhonchi. GASTROINTESTINAL: Abdomen soft, non-tender, nondistended. Bowel Sounds normoactive x4. MUSCULOSKELETAL: Extremities without clubbing, cyanosis. Left lower extremity + [address] NEUROLOGICAL: Awake and alert. Oriented to place, person. No focal neuro deficit. Moves all extremities. Mild expressive aphasia. A/P Assessment and Plan 77-year-old white female with a history of osteoarthritis, hyperlipidemia, diabetes mellitus, insulin-dependent, asthma, hypertension who has had long- standing history of left hip pain despite conservative treatment who electively underwent a left total hip arthroplasty today with Dr. Howard orthopedic surgery. Status post left total hip arthroplasty, by Dr. Howard -Pain management, with bowel regimen -Managed by orthopedic team -Physical therapy eval and treat HTN HLD -Resume home medication atorvastatin 20 mg nightly, chlorthalidone 50 mg daily -Monitor BP trend DM 2, insulin-dependent -Prandial insulin, Levemir 22 units daily, insulin sliding scale -Monitor Accu-Cheks. Monitor for hypoglycemia. -Resume patient home dose which is higher that what she is on during this admission DVT prop Xarelto GI prop pantoprazole Discharge Planning Plan to DC home today by Meme Argueta Feb 01, 2018 08:41
[2018-02-01] MEDS ORDERED: ASPIRIN EC 81 MG TABEC PO SCH (09:00)
[2018-02-01 10:19] VITALS: RESP 20
== END 2018-02-01 12:48 | disposition home health service (06) | DRG 470 ==
LOC: HSDI 01-30 07:14 → N06A 01-30 16:40
PROVIDERS: ADMIT Orthopaedic Surgery; ATTEND Orthopaedic Surgery
PROC: 0SRB04A Replacement of Left Hip Joint with Ceramic on Polyethylene Synthetic Substitute, Uncemented, Open Approach (ICD-10-PCS; principal; 2018-01-30 10:18)
DX: M16.12 Unilateral primary osteoarthritis, left hip (principal); E11.69 Type 2 diabetes mellitus with other specified complication; Z68.41 Body mass index [BMI] 40.0-44.9, adult; R47.01 Aphasia; H90.5 Unspecified sensorineural hearing loss; I10 Essential (primary) hypertension; E78.5 Hyperlipidemia, unspecified; K59.00 Constipation, unspecified; K21.9 Gastro-esophageal reflux disease without esophagitis; E66.9 Obesity, unspecified; J45.909 Unspecified asthma, uncomplicated; M54.9 Dorsalgia, unspecified; G89.29 Other chronic pain; F32.9 Major depressive disorder, single episode, unspecified; F41.9 Anxiety disorder, unspecified; Z79.4 Long term (current) use of insulin; Z79.899 Other long term (current) drug therapy
CPT/HCPCS: 73502; 82948; 84132; 85014; 85018; 86850; 86900; 86901; 94150; C1776; C9290; J0131; J0690; J1580; J1815; J2250; J2370; J3010; J7120; L1830

== ENCOUNTER → 2018-01-27 | Outpatient (CLI) | payer MEDICARE, BC ==
[~2018-01-27] MED LIST changes: +ADJUSTABLE COMM1 MIS; +ECASA81 PO; +EPINEPHrine HCL PF/SF (1:1000) 1 MG/ML AMP I-OCULAR ONE; +HYDR-3580 PO; +POTA-163 PO; +POTA10CA PO; +XARE10TA PO
[2018-01-27 10:21] LABS: BILIRUBIN, URINE NEG (NEG); BLOOD, URINE NEG (NEG); GLUCOSE,URINE NEG (NEG); HYALINE CAST, URINE 8 /lpf (RARE); KETONE, URINE NEG (NEG); MUCUS URINE FEW /lpf (OCC); NITRITE,URINE NEG (NEG); SQUAMOUS EPITHELIAL CELL URINE 1 /hpf (0-5); URINE COLOR YELLOW (YELLW/STRAW); URINE LEUKOCYTE ESTERASE NEG (NEG)
== END ==
LOC: CPRE 07:49
PROVIDERS: ATTEND Orthopaedic Surgery
DX: Z01.812 Encounter for preprocedural laboratory examination (principal); N39.0 Urinary tract infection, site not specified
CPT/HCPCS: 81001